=== PATIENT | male | born 1960 | race Caucasian/White ===

== ENCOUNTER 2016-12-18 13:45 | Inpatient (IN) | payer MEDICAID ==
[~2016-12-18] VITALS: Ht 172.7 cm; Wt 91.6 kg
[~2016-12-18 13:45] MED LIST: FLA250 PO; LEVO500T20 PO
[2016-12-18 13:50] VITALS: BP 159/79; PULSE 86; RESP 16; TEMP 97.8; O2SAT 97
--- NOTE | 2016-12-18 13:59 | NUR ---
Placed in room 4 . Placed on radiation protection technician, blood pressure machine and pulse oximeter. To gown for exam. Side rails up. Report given to Amanda ALCANTARA.
[2016-12-18 14:37] LABS: HEMATOCRIT 44.1 % (36-54); HEMOGLOBIN 14.6 g/dL (14.0-18.0); MEAN CORPUSCULAR HEMOGLOBIN 28 pg (27-31); MEAN CORPUSCULAR HGB CONC 33 % (32-36); MEAN CORPUSCULAR VOLUME 84 fL (79.0-98.0); PLATELET COUNT (AUTO) 213 K/uL (130-430); RED BLOOD CELL COUNT(AUTO) 5.22 MIL/uL (4.2-6.2); RED CELL DISTRIBUTION WIDTH 13.3 % (9.0-15.0); WHITE BLOOD COUNT (AUTO) 14.9 K/uL (4.8-10.8)
[2016-12-18 14:39] LABS: CALCIUM 8.6 mg/dL (8.4-11.0); CREATININE 1.2 mg/dL (0.55-1.30); POTASSIUM 3.8 mmol/L (3.5-5.1)
[2016-12-18 14:40] LABS: PROTHROMBIN TIME 10.9 SECS (9.5-12.5)
[2016-12-18 14:46] LABS: ALBUMIN 3.6 g/dL (3.4-4.8); TOTAL PROTEIN, SERUM 7.4 g/dL (6.4-8.3)
--- NOTE | 2016-12-18 15:05 | NUR ---
Received shift report. Patient to ER C/O SOB worse in the last 3 days. Denies N/V, no diaphoresis, denies being sick cold/flu. AAOx4, no signs of acute distress.
[2016-12-18 15:09] LABS: ATYPICAL LYMPHOCYTES % 0 % (0-0); BAND % (MANUAL) 2 % (0-6); BASOPHILS % (MANUAL) 0 % (0-2); EOSINOPHILS % (MANUAL) 0 % (0-7); LYMPHOCYTES % (MANUAL) 10 % (20-46); MONOCYTES % (MANUAL) 9 % (0-11)
[2016-12-18] MEDS ORDERED: ENOXAPARIN SODIUM 80 MG/0.8 ML SYRINGE SUBCUT ONE (15:15)
[2016-12-18] MEDS ORDERED: ASPIRIN 325 MG TABLET PO ONE (15:15)
[2016-12-18] MEDS ORDERED: cefTRIAXone 1 GM IVPB PREMIX 50 ML IV ONE (15:30)
--- NOTE | 2016-12-18 15:43 | NUR ---
ER MD Osborne at bedside discussing plan of care
--- NOTE | 2016-12-18 16:05 | NUR ---
Patient will be admitted to care of DR LISANDRO Chun. Admitted to TELE unit. Will go to room 135. Belongings list completed. Summary report printed. Report given to MARICRUZ.
[2016-12-18] MEDS ORDERED: NITROGLYCERIN 0.4 MG TAB.SUBL SL ONE (16:15)
--- NOTE | 2016-12-18 16:15 | NUR ---
Transfer to [facility] via ACLS protocol. Licensed nurse present. IV present no signs or symptoms of infiltration.
--- NOTE | 2016-12-18 16:29 | NUR ---
ADMISSION NOTE Received patient from ER via gurney. Patient admitted with diagnosis of Chest Pain. Patient is awake, alert, oriented X 3. Patient oriented to hospital room, call light, toileting, pain management and safety-teach back done. Patient informed that Gisele will be his nurse and that their room number is 106 [id number]. Personal belongings checked and Belongings List documented. Call light within reach.
--- NOTE | 2016-12-18 16:45 | NUR ---
ADMISSION PT A/OX4, DENIES CHEST PAIN, C/O DIFFICULTY BREATHING WHEN LYING DOWN, AND A LITTLE BIT WHEN SITTING UP, STATES "IT DOESN'T FEEL LIKE NORMAL BREATHING"...OXYGEN AT 2L VIA NC...HL TO MISTY 22g FLUSHES WELL...WHITE BOARD UPDATED, CALL LIGHT/PHONE W/IN REACH...WILL REVIEW AND CARRY OUT ORDERS...WILL CONT TO MONITOR
[2016-12-18 16:53] VITALS: BP 134/83; PULSE 89; RESP 18; TEMP 97.8; O2SAT 98
--- NOTE | 2016-12-18 17:51 | NUR ---
AUTOMOTIVE LIGHT MECHANIC AT BEDSIDE
[2016-12-18 17:56] VITALS: BP 134/83; PULSE 89; RESP 18; TEMP 97.8; O2SAT 98
--- NOTE | 2016-12-18 19:30 | NUR ---
INITIAL NOTE Patient resting on the bed. Respiration even and unlabored. No acute distress. On O2 2L/min via NC. AO x 4. Denied of chest pain or discomfort. Skin warm and dry to touch. SL intact to LAC, no redness, no swelling. Discussed the safety issue, use call light when need help, and plan of care, verbally understanding. Safety measure maintained. Call light within reached. Bed in low position, bed alarm on, side rails up. Will continue to monitor.
[2016-12-18 19:50] VITALS: BP 131/71; PULSE 82; RESP 18; TEMP 98.6; O2SAT 97
--- NOTE | 2016-12-18 21:15 | NUR ---
ROUND Patient resting on the bed. No acute distress. Denied of pain. On O2 2L/min via NC. Safety measure maintained. Bed alarm on, side rails up, bed in low position. Call light within reached. Continue to monitor.
--- NOTE | 2016-12-18 23:11 | NUR ---
ROUND Patient resting on the bed. No acute distress. Respiration even and unlabored. Continue on O2 2L/min via NC. Safety measure maintained. Bed alarm on, side rails up, bed in low position. Call light within reached. Continue to monitor.
[2016-12-19 01:06] VITALS: BP 130/77; PULSE 64; RESP 18; TEMP 97.8; O2SAT 99
--- NOTE | 2016-12-19 01:35 | NUR ---
ROUND Patient resting on the bed with eyes closed. No acute distress. Respiration even and unlabored. Continue on O2 2L/min via NC. Safety measure maintained. Bed alarm on, side rails up, bed in low position. Call light within reached. Continue to monitor.
--- NOTE | 2016-12-19 01:39 | NUR ---
CONSULT: DR BACON Consult was called, RE: chest pain sw: Marga
--- NOTE | 2016-12-19 03:37 | NUR ---
ROUND Patient resting on the bed with eyes closed. No acute distress. On O2 2L/min via NC. Safety measure maintained. Call light within reached. Bed alarm on, side rails up, bed in low position. Continue to monitor.
[2016-12-19 04:00] VITALS: BP 142/77; PULSE 68; RESP 18; TEMP 96.8; O2SAT 100
--- NOTE | 2016-12-19 05:11 | NUR ---
ROUND Patient resting on the bed. No acute distress. On O2 via NC. Safety measure maintained. Call light within reached. Bed in low position, side rails up, bed alarm on. Continue to monitor.
--- NOTE | 2016-12-19 06:41 | NUR ---
CLOSING NOTE Patient resting on the bed. Respiration even and unlabored. No acute distress. On O2 2L/min via NC. Denied of pain. Skin warm and dry to touch. SL intact to LAC, no redness, no swelling. All needs met. Hourly rounding during shift. Safety measure maintained. Call light within reached. Bed in low position, bed alarm on, side rails up. Will endorse to morning shift nurse.
[2016-12-19 08:28] VITALS: BP 149/84; PULSE 78; RESP 18; TEMP 97.4; O2SAT 99
[2016-12-19] MEDS: ASPIRIN 81 MG TAB.CHEW PO SCH (09:07)
[2016-12-19 10:25] LABS: BASOPHILS % (AUTO) 0.4 % (0.0-2.0); EOSINOPHILS # (AUTO) 0.1 K/uL (0.0-0.4); EOSINOPHILS % (AUTO) 1.1 % (0.0-4.0); HEMATOCRIT 44.7 % (36-54); HEMOGLOBIN 15.1 g/dL (14.0-18.0); LYMPHOCYTES # (AUTO) 1.4 K/uL (1.0-5.5); LYMPHOCYTES % (AUTO) 16.8 % (20.5-51.5); MEAN CORPUSCULAR HEMOGLOBIN 28 pg (27-31); MEAN CORPUSCULAR HGB CONC 34 % (32-36); MEAN CORPUSCULAR VOLUME 84 fL (79.0-98.0); MONOCYTES # (AUTO) 0.7 K/uL (0.0-1.0); MONOCYTES % (AUTO) 8.4 % (1.7-9.3); NEUTROPHILS # (AUTO) 5.8 K/uL (1.8-7.7); NEUTROPHILS % (AUTO) 73.3 % (40.0-70.0); PLATELET COUNT (AUTO) 193 K/uL (130-430); RED BLOOD CELL COUNT(AUTO) 5.32 MIL/uL (4.2-6.2); RED CELL DISTRIBUTION WIDTH 13.3 % (9.0-15.0)
[2016-12-19 10:52] LABS: CALCIUM 9.3 mg/dL (8.4-11.0); POTASSIUM 4.2 mmol/L (3.5-5.1)
--- NOTE | 2016-12-19 11:00 | NUR ---
MD ROUNDS: SEEN BY DR. JASWINDER Garcia, WITH NEW ORDERS.
[2016-12-19 11:34] VITALS: BP 148/82; PULSE 75; RESP 19; TEMP 96.7; O2SAT 96
--- NOTE | 2016-12-19 12:30 | NUR ---
NOTES: PATIENT AMBULATING IN THE HALLWAY STEADY GAIT. WILL MONITOR.
[2016-12-19] MEDS ORDERED: ACETAMINOPHEN 325 MG TABLET PO PRN (13:45)
--- NOTE | 2016-12-19 14:00 | NUR ---
NOTES: PATIENT C/O HEADACHE 3/10 SCALE. S/W DR. SAN WITH NEW ORDER RECEIVED.
[2016-12-19 15:44] VITALS: BP 115/56; PULSE 82; RESP 19; TEMP 98.1; O2SAT 95
--- NOTE | 2016-12-19 17:14 | NUR ---
CARDIO CONSULT: SEEN BY DR. PABON WITH NEW ORDER RECEIVED. CONSENT WAS BEEN CONSENTED BY PATIENT FOR NUCLEAR LEXISCAN STRESS TEST.
[2016-12-19 19:20] VITALS: BP 128/77; PULSE 64; RESP 18; TEMP 97.3; O2SAT 99
--- NOTE | 2016-12-19 19:20 | NUR ---
INITIAL NOTE Patient walking in the hallway with daughter. Respiration even and unlabored. No acute distress. Skin warm and dry to touch. Instructed patient NPO after midnight and will do stress test lexiscan tomorrow, verbally understanding. Patient stated will walk around with daughter.
--- NOTE | 2016-12-19 19:50 | NUR ---
NOTE Patient sitting in the front lobby with daughter. No acute distress. Reminded patient do not drink any caffeine starting now, verbally understanding. Patient stated that will sitting a while then back to room.
--- NOTE | 2016-12-19 21:03 | NUR ---
PATIENT STILL OFF UNIT Patient still with family sitting and talking in the front lobby. Patient respiration even and unlabored. Patent stated that will be back later.
--- NOTE | 2016-12-19 21:25 | NUR ---
BACK TO UNIT Patient back to room. Respiration even and unlabored. No acute distress. On O2 2L/min via NC. Safety measure maintained. Call light within reached. Refused to turn on bed alarm. Side rails up, bed in low position. Will continue to monitor.
--- NOTE | 2016-12-19 23:10 | NUR ---
ROUND Patient resting on the bed with eyes closed. Respiration even and unlabored. No acute distress. On O2 via NC. Safety measure maintained. Bed in low position, side rails up. Call light within reached. Will continue to monitor.
[2016-12-20] VITALS: BP 132/75; PULSE 61; RESP 18; TEMP 97; O2SAT 97
--- NOTE | 2016-12-20 01:40 | NUR ---
ROUND Patient sleeping comfortable. Respiration even and unlabored. No acute distress. On O2 via NC. Bed in low position, side rials up. Call light within reached. Continue to monitor.
--- NOTE | 2016-12-20 03:56 | NUR ---
ROUND Patient sleeping comfortable. No acute distress. On O2 via NC. Safety measure maintained. Bed in low position, side rials up. Call light within reached. Continue to monitor.
[2016-12-20 04:17] VITALS: BP 137/78; PULSE 69; RESP 18; TEMP 97.2; O2SAT 99
--- NOTE | 2016-12-20 05:24 | NUR ---
ROUND Patient resting on the bed with eyes closed. No acute distress. On O2 via NC. Safety measure maintained. Call light within reached. Continue to monitor.
--- NOTE | 2016-12-20 06:40 | NUR ---
CLOSING NOTE Patient resting on the bed. Respiration even and unlabored. On O2 2L/min via NC. Denied of pain. Skin warm and dry to touch. SL intact to LAC, no redness, no swelling. All needs met. Hourly rounding during shift. Safety measure maintained. Call light within reached. Bed in low position, bed alarm on, side rails up. Will endorse to morning shift nurse.
[2016-12-20 07:59] VITALS: BP 139/76; PULSE 71; RESP 18; TEMP 97.6; O2SAT 98
--- NOTE | 2016-12-20 08:00 | NUR ---
NOTE PT AAOX4 SITTING ON BS CHAIR AT THIS TIME. NO SOB/RESP DISTRESS OR CHEST PAIN/DISCOMFORT NOTED AT THIS TIME. IV IN LEFT FOREARM INTACT AND PATENT, SALINE LOCKED AT THIS TIME. TELE UNIT ON AND ATTACHED. CALL LIGHT WITHIN REACH
--- NOTE | 2016-12-20 08:05 | NUR ---
NOTE PT OFF THE FLOOR VIA WHEELCHAIR FOR LEXISCAN TEST.
[2016-12-20] MEDS ORDERED: REGADENOSON 0.4 MG/5 ML SYRINGE IVP ONE (09:00)
--- NOTE | 2016-12-20 09:08 | NUR ---
Nutrition Update Mendel Scale 18 noted. Pt admitted for chest pain. Diet: 2 gm Na BMI: 30.7 kg/m2 RD to follow per nutrition care standards.
--- NOTE | 2016-12-20 09:25 | NUR ---
NOTE PT RETURNED TO FROM FROM [facility]AYDA SCAN TEST. DIET ORDERED BY CARDIO DEPT FOR PT AT THIS TIME. PT IS AMBULATORY IN ROOM AND HALLWAY WITH STEADY GAIT AND NO CHEST PAIN/DISCOMFORT OR SOB AT THIS TIME.
--- NOTE | 2016-12-20 10:20 | NUR ---
NOTE DR LUISA MATTHEWS ON THE FLOOR TO ASSESS PT. PT WAS AMBULATING IN HALLWAYS AT THIS TIME.
[2016-12-20 11:38] VITALS: BP 142/74; PULSE 52; RESP 20; TEMP 96.9; O2SAT 93
[2016-12-20] MEDS: ASPIRIN 81 MG TAB.CHEW PO SCH (12:26)
--- NOTE | 2016-12-20 13:40 | NUR ---
NOTE PT AMBULATING IN THE HALLWAY WITHOUT O2, SATS ARE 94% ON ROOM AIR AT THIS TIME. DENIES ANY NEEDS. DENIES ANY SOB OR CHEST DISCOMFORT/PAIN/PRESSURE.
--- NOTE | 2016-12-20 15:40 | NUR ---
NOTE DR PABON WAS CALLED PER PT'S REQUEST TO FIND OUT WHAT TIME MD WILL BE DOING ROUNDS. WAITING FOR CALL BACK AT THIS TIME.
[2016-12-20 15:54] VITALS: BP 122/66; PULSE 85; RESP 16; TEMP 97; O2SAT 98
--- NOTE | 2016-12-20 18:00 | NUR ---
NOTE DR PABON CALLED BACK AND PT MAYBE DISCHARGED HOME TODAY. PRESCRIPTION WILL BE CALLED IN TO PT'S PHARMACY. DR MAGDY MATTHEWS PAGED TO SEE IF PT CAN BE DISCHARGED HOME TONIGHT PER PT'S REQUEST. PT'S TELE UNIT WAS DC'D AND RETURNED TO DIGITAL MARKETING STRATEGIST AT THIS TIME. PT AMBULATING IN HALLWAY AT THIS TIME. PT STEADY GAIT. NO SOB/RESP DISTRESS OR CHEST PAIN/DISCOMFORT/PRESSURE NOTED ALL SHIFT.
--- NOTE | 2016-12-20 18:35 | NUR ---
NOTE 2ND CALL PUT IN FOR DR MAGDY MATTHEWS
--- NOTE | 2016-12-20 18:50 | NUR ---
PAGED: I PAGED DR. CASSIE MORAN @[phone] I SPOKE WITH ROCK LEVIN
--- NOTE | 2016-12-20 19:10 | NUR ---
Initial PM Note Pt was received sitting up in a chair at the bedside fully AAO X4, Bulgarian speaking. Pt is able to make his needs known. No acute distress noted at this time. No c/o pain or discomfort. Saline lock is patent in LAC without any signs of infiltration. Fall precautions are in place. Pt was instructed to call for assistance as needed and pt verbalized understanding. Pt is awaiting discharge orders from Dr. Muhammad for tonight. Will continue to monitor pt.
--- NOTE | 2016-12-20 19:13 | NUR ---
PAGED: I PAGED DR. CASSIE MORAN THIS IS SECOND TIME @ 190 I SPOKE WITH HELENA LEVIN
--- NOTE | 2016-12-20 19:46 | NUR ---
NOTE DR MATTHEWS CALLED BACK AND VERBAL DISCHARGE ORDER AND INSTRUCTIONS GIVEN AND CARRIED OUT. PT'S LEFT AC IV WAS DC'D AND SITE HAS NO SWELLING/REDNESS/BLEEDING OR TENDERNESS AT SITE NOTED. PT DRESSED IN STREET CLOTHES AND PACKED ALL BELONGINGS. PT CHECKED SIDE TABLE AND DRAWERS FOR BELONGINGS. PT OFF THE FLOOR TO PRIVATE CAR. PT STABLE. NO SOB/RESP DISTRESS OR CHEST PAIN/DISCOMFORT/PRESSURE NOTED ALL SHIFT. QUESTIONS/CONCERNS/INSTRUCTIONS ANSWERED AT THIS TIME.
--- NOTE | 2016-12-20 20:00 | NUR ---
Discharge Pt already discharged home prior to complete PM assessment.
--- NOTE | 2016-12-29 09:26 | NUR ---
Discharge Follow Up Phone Call REPORT WRITER phoned patient, , on 12/27/16, 12/28/16, and 12/29/16 and left voicemail messages with offer of assistance and Social Service contact information. No further calls will be made.
== END 2016-12-20 19:45 | disposition home or self-care (01) | DRG 203 ==
LOC: SED 13:45 → SMU 16:05 → STU 16:15
PROVIDERS: ADMIT Family Medicine; ATTEND Family Medicine
DX: R07.9 Chest pain, unspecified (principal); I42.2 Other hypertrophic cardiomyopathy; N02.8 Recurrent and persistent hematuria with other morphologic changes; R74.8 Abnormal levels of other serum enzymes; Z87.440 Personal history of urinary (tract) infections; Z90.49 Acquired absence of other specified parts of digestive tract; D72.829 Elevated white blood cell count, unspecified
CPT/HCPCS: 36415; 71010; 80048; 80053; 83605; 83880; 84484; 85007; 85025; 85027; 85379; 85610-TC; 85730-TC; 87040-TC; 93005; 93017; 93306; 96365; 96372; 99291; A9500; J0696; J1650; J2785

== ENCOUNTER 2017-02-28 15:28 | Emergency (ER) | payer MEDICAID ==
[~2017-02-28] VITALS: Ht 172.7 cm; Wt 81.6 kg
[2017-02-28 15:32] VITALS: BP 157/79; PULSE 97; RESP 18; TEMP 97.5; O2SAT 97
--- NOTE | 2017-02-28 15:41 | NUR ---
Patient to ER bed 6 to gown for evaluation. Side rails up. Report given to Nicolle ALCANTARA.
--- NOTE | 2017-02-28 15:51 | NUR ---
CINDY Ortiz at bedside
--- NOTE | 2017-02-28 15:55 | NUR ---
Patient is in stable condition. Patient states that he has been having urinary frequency and burning for last two days. Urine sample collected and sent to lab. Denies any pain. No other complaints/injuries per patient or as noted.
[2017-02-28 16:19] LABS: BILIRUBIN,URINE NEGATIVE (NEGATIVE); BLOOD, URINE 2+ (NEGATIVE); CLARITY/URINE CLEAR (CLEAR); COLOR,URINE YELLOW (YELLOW); GLUCOSE,URINE NEGATIVE (NEGATIVE); KETONES,URINE NEGATIVE (NEGATIVE); LEUKOCYTE ESTERASE ,URINE NEGATIVE (NEGATIVE); NITRITE, URINE NEGATIVE (NEGATIVE); PROTEIN URINE 2+ (NEGATIVE); UROBILINOGEN,URINE 0.2 (0.2-1.0)
[2017-02-28 16:53] LABS: BACTERIA,URINE FEW /HPF (None Seen); MUCUS,URINE None Seen /LPF (None Seen); WBC,URINE 0-3 /HPF (0-3)
[2017-02-28] MEDS ORDERED: CIPROFLOXACIN HCL 500 MG TABLET PO ONE (17:15)
[2017-02-28] MEDS ORDERED: PHENAZOPYRIDINE HCL 100 MG TABLET PO ONE (17:15)
[2017-02-28 17:34] VITALS: BP 142/80; PULSE 84; RESP 18; TEMP 97.5; O2SAT 97
--- NOTE | 2017-02-28 17:34 | NUR ---
Patient given written and verbal discharge instructions and verbalizes understanding. ER MD discussed with patient the results and treatment provided. Patient in stable condition. ID arm band removed. Rx of Pyridium and Cipro given. Patient educated on pain management and to follow up with PMD in 48 hours. Pain Scale 0/10 Opportunity for questions provided and answered.
[2017-02-28] MEDS ORDERED: PHENAZOPYRIDINE HCL 100 MG TABLET ONE (17:38)
== END 2017-02-28 17:34 | disposition home or self-care (01) ==
LOC: SED 15:28
DX: N39.0 Urinary tract infection, site not specified (principal); Z86.79 Personal history of other diseases of the circulatory system
CPT/HCPCS: 81000-TC; 87086; 99284

== ENCOUNTER 2017-03-01 16:41 | Emergency (ER) | payer MEDICAID ==
[~2017-03-01] VITALS: Ht 172.7 cm; Wt 81.6 kg
[2017-03-01 16:41] VITALS: BP_SYST 129
[2017-03-01] MEDS ORDERED: NACL 0.9% 1,000 ML IV ONE ×2 (17:00→19:30)
[2017-03-01 17:30] LABS: BASOPHILS % (AUTO) 0.4 % (0.0-2.0); EOSINOPHILS # (AUTO) 0.1 K/uL (0.0-0.4); EOSINOPHILS % (AUTO) 0.9 % (0.0-4.0); HEMATOCRIT 45.8 % (36-54); HEMOGLOBIN 15.3 g/dL (14.0-18.0); LYMPHOCYTES # (AUTO) 1.5 K/uL (1.0-5.5); LYMPHOCYTES % (AUTO) 14.6 % (20.5-51.5); MEAN CORPUSCULAR HEMOGLOBIN 28 pg (27-31); MEAN CORPUSCULAR HGB CONC 33 % (32-36); MEAN CORPUSCULAR VOLUME 85 fL (79.0-98.0); MONOCYTES # (AUTO) 0.8 K/uL (0.0-1.0); MONOCYTES % (AUTO) 7.3 % (1.7-9.3); NEUTROPHILS # (AUTO) 7.9 K/uL (1.8-7.7); NEUTROPHILS % (AUTO) 76.8 % (40.0-70.0); PLATELET COUNT (AUTO) 259 K/uL (130-430); RED BLOOD CELL COUNT(AUTO) 5.42 MIL/uL (4.2-6.2); RED CELL DISTRIBUTION WIDTH 12.7 % (9.0-15.0); WHITE BLOOD COUNT (AUTO) 10.3 K/uL (4.8-10.8)
[2017-03-01 17:33] LABS: CREATININE 1.3 mg/dL (0.55-1.30); POTASSIUM 3.5 mmol/L (3.5-5.1)
[2017-03-01 17:38] LABS: TOTAL BILIRUBIN 1.3 mg/dL (0.0-1.0); TOTAL PROTEIN, SERUM 7.6 g/dL (6.4-8.3)
[2017-03-01 18:13] LABS: BILIRUBIN,URINE 2+ (NEGATIVE); BLOOD, URINE 2+ (NEGATIVE); CLARITY/URINE CLEAR (CLEAR); COLOR,URINE ORANGE (YELLOW); LEUKOCYTE ESTERASE ,URINE NEGATIVE (NEGATIVE); PROTEIN URINE 3+ (NEGATIVE)
[2017-03-01] MEDS ORDERED: KETOROLAC TROMETHAMINE 30 MG VIAL IVP ONE (18:15)
[2017-03-01 18:18] LABS: GLUCOSE,URINE NEGATIVE (NEGATIVE); KETONES,URINE NEGATIVE (NEGATIVE); NITRITE, URINE NEGATIVE (NEGATIVE)
[2017-03-01 18:46] LABS: BACTERIA,URINE FEW /HPF (None Seen); FINE GRANULAR CASTS,URINE 0-10 /LPF (None Seen); HYALINE CASTS, URINE 0-10 /LPF (None Seen); MUCUS,URINE 3+ /LPF (None Seen); RBC,URINE 20-50 /HPF (0-3)
[2017-03-01] MEDS ORDERED: cefTRIAXone 1 GM in D5W 50 ML IV ONE (19:30)
[2017-03-01] MEDS ORDERED: cefTRIAXone 1 GM VIAL ONE (19:34)
[2017-03-01 20:20] VITALS: BP_SYST 122
== END 2017-03-01 20:20 | disposition home or self-care (01) ==
LOC: SED 16:41
DX: N39.0 Urinary tract infection, site not specified (principal); Z86.79 Personal history of other diseases of the circulatory system
CPT/HCPCS: 36415; 74176; 76770; 80053; 81000; 83605; 83690; 85025; 87040; 87086; 96361; 96365; 96375; 99285; J0696; J1885; J7030

== ENCOUNTER 2017-03-05 20:51 | Emergency (ER) | payer MEDICAID ==
[~2017-03-05] VITALS: Ht 172.7 cm; Wt 80.7 kg
[2017-03-05 20:55] VITALS: BP 141/71; PULSE 89; RESP 20; TEMP 98.1; O2SAT 98
--- NOTE | 2017-03-05 21:17 | NUR ---
Patient to ER bed 5 to gown for evaluation. Side rails up. Report given to JOSÉ MIGUEL ALCANTARA.
--- NOTE | 2017-03-05 21:20 | NUR ---
Pt brought by family, A&Ox4, pt c/o L elbow pain and swelling after falling,no open area ,skin pink and warm, cap refill <3, VS WNL
--- NOTE | 2017-03-05 21:20 | NUR ---
Carolin Ortiz RESPIRATORY SUPPORT TECHNICIAN at bedside examining patient
[2017-03-05] MEDS ORDERED: HYDROcodone/ACETAMIN 7.5-325 MG TAB PO ONE (22:00)
[2017-03-05] MEDS ORDERED: ACETAMINOPHEN 500 MG TABLET PO ONE (22:15)
[2017-03-05 23:04] VITALS: BP 128/76; PULSE 86; RESP 17; TEMP 98; O2SAT 98
[2017-03-05 23:04] LABS: BILIRUBIN,URINE NEGATIVE (NEGATIVE); BLOOD, URINE 2+ (NEGATIVE); CLARITY/URINE CLEAR (CLEAR); COLOR,URINE YELLOW (YELLOW); GLUCOSE,URINE NEGATIVE (NEGATIVE); KETONES,URINE NEGATIVE (NEGATIVE); LEUKOCYTE ESTERASE ,URINE NEGATIVE (NEGATIVE); NITRITE, URINE NEGATIVE (NEGATIVE); PH,URINE 5.5 (5.0-8.0); PROTEIN URINE 2+ (NEGATIVE); UROBILINOGEN,URINE 0.2 (0.2-1.0)
--- NOTE | 2017-03-05 23:04 | NUR ---
Patient given written and verbal discharge instructions and verbalizes understanding. ER MD Enriquez discussed with patient the results and treatment provided. Patient in stable condition. ID arm band removed. Patient educated on pain management and to follow up with PMD. Pain Scale 0/10. Opportunity for questions provided and answered.
[2017-03-05 23:09] LABS: BACTERIA,URINE FEW /HPF (None Seen); HYALINE CASTS, URINE 0-10 /LPF (None Seen); MUCUS,URINE 1+ /LPF (None Seen); RBC,URINE 0-3 /HPF (0-3)
== END 2017-03-05 23:04 | disposition home or self-care (01) ==
LOC: SED 20:51
DX: S50.02XA Contusion of left elbow, initial encounter (principal); R30.0 Dysuria; Z86.73 Personal history of transient ischemic attack (TIA), and cerebral infarction without residual deficits; W10.9XXA Fall (on) (from) unspecified stairs and steps, initial encounter; Y93.89 Activity, other specified; Y92.89 Other specified places as the place of occurrence of the external cause; Y99.8 Other external cause status
CPT/HCPCS: 81000-TC; 99285